=== PATIENT | male | born 1980 | race Caucasian/White ===

== ENCOUNTER → 2020-04-20 | Outpatient (CLI) | payer OTHER | LOC: COL.RAD 13:00 | DX: K44.9 Diaphragmatic hernia without obstruction or gangrene (principal); K21.0 Gastro-esophageal reflux disease with esophagitis ==

== ENCOUNTER 2020-06-06 07:03 | Day surgery (SDC) | payer OTHER ==
[~2020-06-06] VITALS: Ht 172.7 cm; Wt 80.7 kg
[2020-06-06] VITALS (9 sets, daily range): BP systolic 125–148; BP diastolic 70–94; PULSE 72–96; TEMP 97.5–98.8
--- NOTE | 2020-06-06 12:25 | NUR ---
PATIENT ADMITED INTO ROOM 322-2 POST OP ROBOTIC ROBYN WITH HERNIA REPAIR. ABD LAP SITES X6 ARE CD&I AND CLOSED WITH GLUE. ABD IS DISTENDED, SL FIRM AND WITH POSITIVE BOWL SOUNDS. NO C/O N/V. NOTED CREPITUS IN FACE, NECK & COLLAR BONE. PATIENT C/O SL GAS PAINS IN SHOULDERS. NURSING EDUCATED PATIENT AND ABOUT POST OP ROBOTIC PROCEDURE AND ERAS PROTOCOL. HEAD TO TOE ASSESSMENT COMPLETE. ORIENTED TO ROOM. CALL LIGHT IN REACH. AT BEDSIDE.
--- NOTE | 2020-06-06 13:15 | NUR ---
PATIENT ABLE TO VOID 200CC POST OP USING THE URINAL. PATIENT C/O SL NAUSEA, NO EMESIS. GAVE PRN ZOFRAN. LIQUIDS AT BEDSIDE. PATIENT RESTING. AT BEDSIDE.
--- NOTE | 2020-06-06 15:00 | NUR ---
REPORTED OFF TO GLADIS ESPARZA
--- NOTE | 2020-06-06 15:15 | NUR ---
Report from Phyllis. GLADIS
--- NOTE | 2020-06-06 16:56 | NUR ---
Patient awaken sitting in bed. A&Ox3, denies pain. VSS. Reporting some discomfort in face. Crepitus noted in upper torso, by clavicals and in face, checks and neck. Voice also sounds nasally. Doctor Lucy notified and just continued monitoring the patient. Patient informed that it will go away with time and to call nursing staff for any concerns. No further needs expressed from the patient. Call light within reach
--- NOTE | 2020-06-06 17:32 | NUR ---
Patient sitting up in bed eatting dinner. No complaints of pain or nausea. VSS. A&O. IV CDI. No further needs expressed from the patient. Call light within reach.
--- NOTE | 2020-06-06 19:26 | NUR ---
Resting in bed. Assessment complete. Lungs clear. Heart sounds normal. Bowels hypoactive at this time. Pulses present throughout. No edema noted. INT left wrist without complications. Denies pain but reports discomfort in upper chest and facial areas. Patient has crepitus. Educated to ambulate this evening. Denies other needs at this time. Denies needs for tylenol. Will monitor.
--- NOTE | 2020-06-06 23:32 | NUR ---
Patient reports inability to have a deep breath at times. Patient educated on ambulating and given IS by respiratory. Patient has crepitus and is 93% on room air. Will continue to monitor.
[2020-06-07 01:20] VITALS: BP 123/69; PULSE 94; TEMP 99.1
[2020-06-07 03:36] VITALS: BP 132/68; PULSE 85; TEMP 98.9
--- NOTE | 2020-06-07 03:54 | NUR ---
Resting in bed. Denies needs. Call light in reach.
--- NOTE | 2020-06-07 05:50 | NUR ---
Patient had uneventful night. Mild discomfort with crepitus. Resting in bed this AM. Call light in reach.
--- NOTE | 2020-06-07 07:06 | NUR ---
Report given to GLADIS Hein
--- NOTE | 2020-06-07 07:28 | NUR ---
Pt reports having "slight cough that is sometimes productive" and "It doesn't happen very often. Just a couple of times since surgery." Pt did not display productive cough during nursing assessment for evaluation. Education on IS and splenting ABD during cough provided. Patient verbally displayed understanding of teachings.
[2020-06-07 07:38] VITALS: BP 127/76; PULSE 90; TEMP 98.5
--- NOTE | 2020-06-07 08:00 | NUR ---
PATIENT IS A&O. VSS. REPORTS ABD TENDERNESS MILD AND DENIES NEED FOR PAIN MEDS. ABD IS SL DISTENDEND, MORE SOFT THAN YESTERDAY, AND WITH POSITIVE BOWL SOUNDS. NO C/O N/V. TOLERATING CLEAR LIQUID DIET WELL. IV TO INT. ABD LAP SITES X6 ARE CD&I WITH GLUED CLOSURE. HEAD TO TOE ASSESSMENT COMPLETE. STUDENT NURSE WORKING WITH PATIENT TODAY, SEE STUDENT CHARTING. PATIENT HOPING TO DISCHARGE HOME LATER TODAY.
[2020-06-07] MEDS ORDERED: ULTRAM 50MG TAB50 MG PO (09:08)
--- NOTE | 2020-06-07 11:10 | NUR ---
PATIENT DISCHARGING HOME VIA AMBULATORY TO PERSONAL VEHICLE. GAVE DISCHARGE INSTRUCTIONS, PRESCRIPTION AND F/U APT. ANSWERED ALL QUESTIONS/CONCERNS. STUDENT NURSE DC'D IV SITE, SEE CHARTING. PATIENT DRESSED AND PACKED PERSONAL BELONGINGS. PATIENT DISCHARGED.
== END 2020-06-07 11:10 | disposition home or self-care (01) ==
LOC: SDCO 07:03 → SURG 12:25 → SDCO 06-07 11:10
DX: K21.0 Gastro-esophageal reflux disease with esophagitis (principal); K44.9 Diaphragmatic hernia without obstruction or gangrene; Z20.828 Contact with and (suspected) exposure to other viral communicable diseases
CPT/HCPCS: OP; A9284; J0360; J0690; J1100; J1885; J2250; J2405; J2704; J2795; J3010; J7120

== ENCOUNTER 2020-10-19 06:26 | Day surgery (SDC) | payer OTHER ==
[~2020-10-19] VITALS: Ht 172.7 cm; Wt 78.4 kg
[~2020-10-19 06:26] MED LIST: ULTRAM 50MG TAB50 MG PO
[2020-10-19 06:56] VITALS: BP 134/96; PULSE 78; TEMP 97.6
[2020-10-19] MEDS ORDERED: CRESTOR40 MG PO (07:03)
[2020-10-19] MEDS ORDERED: HCTZ 25MG TAB25 MG PO (07:03)
--- NOTE | 2020-10-19 07:09 | NUR ---
CALL LIGHT IN REACH
[2020-10-19 07:51] VITALS: BP 125/89; PULSE 81; TEMP 97.3
[2020-10-19 08:00] VITALS: BP 131/98; PULSE 77
--- NOTE | 2020-10-19 08:03 | NUR ---
PT RETURNED PER CART. PT A/OX3, DENIES PAIN, NAUSEA OR VOMITING. VSS, AFEBRILE. LUNGS CLEAR, HRR, BOWEL SOUNDS AUDIBLE. PT REQUESTING APPLESAUCE AND APPLE JUICE. TOLERATING WELL.
[2020-10-19 08:15] VITALS: BP 139/90; PULSE 63
--- NOTE | 2020-10-19 08:17 | NUR ---
PT TOLERATING PO WELL. DENIES PAIN OR NAUSEA AT THIS TIME. WILL DC IV. CONTINUE TO MONITOR.
[2020-10-19 08:30] VITALS: BP 124/86; PULSE 70
--- NOTE | 2020-10-19 08:32 | NUR ---
PT TOLERATING PO WITHOUT DIFFICULTY. DENIES PAIN OR NAUSEA AT THIS TIME. #22 DC'D PER LEFT HAND. DIMISSAL INSTRUCTIONS GIVEN, PT DENIES QUESTION. PT SIGNED.
== END 2020-10-19 08:58 | disposition home or self-care (01) ==
LOC: SDCO 06:26
DX: K92.1 Melena (principal); K64.2 Third degree hemorrhoids; K64.4 Residual hemorrhoidal skin tags; K58.9 Irritable bowel syndrome, unspecified; K21.9 Gastro-esophageal reflux disease without esophagitis; E78.00 Pure hypercholesterolemia, unspecified; Z98.52 Vasectomy status; E78.5 Hyperlipidemia, unspecified; I10 Essential (primary) hypertension; Z20.822 Contact with and (suspected) exposure to COVID-19
CPT/HCPCS: J2704; J7030